=== PATIENT | male | born 1985 | race Two or more races ===

== ENCOUNTER → 2017-05-01 | Outpatient (CLI) | payer OTHER ==
[~2017-05-01] MED LIST: METHACHOLINE KIT (J7674) INH
[2017-05-01 08:34] LABS: HEMOGLOBIN 14.3 g/dl (14.0-18.0)
== END ==
LOC: M CARPUL 07:38
DX: J30.9 Allergic rhinitis, unspecified (principal)
CPT/HCPCS: J7674

== ENCOUNTER → 2017-05-22 | Outpatient (REF) | payer OTHER ==
[2017-05-22 10:04] LABS: IMMMOTILE SPERM CENTRIFUGED ABSENT (ABSENT); IMMOTILE SPERM ABSENT (ABSENT); MOTILE SPERM ABSENT (ABSENT); MOTILE SPERM CENTRIFUGED ABSENT (ABSENT); SEMEN APPEARANCE OPAQUE (OPAQUE); SEMEN VISCOSITY VISCOUS (LIQUID); SEMEN VOLUME 3.3 ml (4.0-5.0); SPERM ABNORMAL FORMS WBC'S NOTED; WBC CONCENTRATION <=1 M/ml (<=1 M/ml)
== END ==
LOC: M SMT 09:41
DX: Z30.2 Encounter for sterilization (principal)
CPT/HCPCS: 89321